=== PATIENT | female | born 1945 | race African-American/Black ===

== ENCOUNTER 2021-05-21 03:37 | Emergency (ER) | payer MEDICARE, MEDICAID ==
[2021-05-21] MEDS ORDERED: Lorazepam 2 MG/ML VIAL ONE (03:59)
== END 2021-05-21 09:44 | disposition home or self-care (01) ==
LOC: CSHERS 03:37
DX: M79.651 Pain in right thigh (principal); M79.652 Pain in left thigh; W06.XXXA Fall from bed, initial encounter
CPT/HCPCS: 70450; 72125; 72192; 96374; J2060

== ENCOUNTER 2021-11-22 06:09 | Emergency (ER) | payer MEDICARE, OTHER ==
[2021-11-22] MEDS ORDERED: Acetaminophen 325 MG TAB ONE (08:23)
== END 2021-11-22 12:22 | disposition home or self-care (01) ==
LOC: CSHERS 06:09
DX: S00.03XA Contusion of scalp, initial encounter (principal); I12.9 Hypertensive chronic kidney disease with stage 1 through stage 4 chronic kidney disease, or unspecified chronic kidney disease; E11.22 Type 2 diabetes mellitus with diabetic chronic kidney disease; N18.1 Chronic kidney disease, stage 1; C90.00 Multiple myeloma not having achieved remission; W06.XXXA Fall from bed, initial encounter; Z79.84 Long term (current) use of oral hypoglycemic drugs; Z79.899 Other long term (current) drug therapy
CPT/HCPCS: 70450; 72125

== ENCOUNTER 2022-06-27 09:58 | Inpatient (IN) | payer MEDICARE, MEDICAID ==
[2022-06-27] MEDS ORDERED: Cefepime 2 GM VIAL ONE (11:21)
[2022-06-27] MEDS ORDERED: Ondansetron PF 4 MG/2 ML Vial ONE (11:21)
[2022-06-27 11:27] LABS: Hemoglobin 9.3 g/dL (12.0-15.5); MDiff Complete? YES; Mean Corpuscular HGB CONC 33.9 g/dL (32.0-36.0); Mean Corpuscular Volume 106.2 fl (81.6-98.3); Mean Platelet Volume 12.9 fl (7.4-10.4); Platelet Count 125 10x3/uL (150-450); RBC Distribution Width 14.3 % (11.5-14.5); Red Blood Cell (RBC) Count 2.58 10x6/uL (3.90-5.03); White Blood Cell (WBC) Count 4.8 10x3/uL (3.5-10.5)
[2022-06-27 11:32] LABS: INR-International Normal Ratio 1.1; PTT 30.1 sec (22.0-33.0); Prothrombin Time 11.4 sec (9.5-12.1)
[2022-06-27 11:36] LABS: Chloride 104 mmol/L (98-107); Potassium 3.6 mmol/L (3.5-5.1); Sodium 142 mmol/L (136-145)
[2022-06-27 11:37] LABS: ALT (SGPT) 13 U/L (8-55); AST (SGOT) 16 U/L (5-34); Albumin 3.2 g/dL (3.4-4.8); Alkaline Phosphatase 72 U/L (40-110); Anion Gap 15 mmol/L (10-20); BUN (Urea Nitrogen) 21 mg/dL (9.8-20.1); Bilirubin, Total 1.2 mg/dL (0.2-1.2); Calc. Creatinine Clearance 0 mL/min (70-130); Carbon Dioxide 27 mmol/L (23-31); Estimated GFR 70; Globulin 2.4 g/dL (2.4-3.5); Glucose 187 mg/dL (83-110); Lipase 26 U/L (8-78); Protein, Total 5.6 g/dL (5.8-8.1)
[2022-06-27 11:43] LABS: Actual Bicarbonate (HCO3v) 29 mEq/L (22-28); Chloride (VBG) 102 mmol/L (98-106); Hemoglobin (Hb) 10.5 g/dL (11.7-16.1); Potassium (VBG) 4.66 mmol/L (3.70-5.30); Puncture Site Other Site; RapidComm Collect By ER NURSE; Sodium 140.3 mmol/L (133-146); pH (venous) 7.45 (7.32-7.43)
[2022-06-27 11:55] LABS: Band 10 % (5-11); Lymphocytes 10 % (21-51); Monocytes 5 % (0-10); Neutrophil 74 % (42-75); Reactive Lymphocytes 1 % (0-10)
[2022-06-27 11:58] LABS: Hypochromia SLIGHT = 6-15 cells (100X) (0-5/hpf); Macrocytosis SLIGHT = 6-15 cells (100X) (0-5/hpf); Poikilocytosis SLIGHT = 6-15 cells (100X) (0-5/hpf)
[2022-06-27 11:59] LABS: Ovalocytes SLIGHT = 2-5 cells (100X) (0-1/hpf); Platelet Morphology Comment Appears Decreased; Toxic Granulation SLIGHT
[2022-06-27] MEDS ORDERED: Vancomycin 1 GM VIAL ONE (12:19)
[2022-06-27 12:24] LABS: SARS-CoV-2 NAA Rapid Test Not Detected (NotDetected)
[2022-06-27 13:17] LABS: Bilirubin Neg (Negative); Blood, Urine 150 (Negative); Clarity Slightly Cloudy (Clear); Glucose, Urine (Dipstick) Normal (Negative); Ketone, Urine Negative (Negative); Leukocyte Negative (Negative); Nitrite Negative (Negative); Protein, Urine (Dipstick) 30 mg/dl (Neg-Trace); Specific Gravity, Urine 1.025 (1.005-1.030)
[2022-06-27 13:28] LABS: Bacteria/HPF Rare-Few HPF (None Seen); Squamous Epithelial 0-3 HPF (0-3); WBC/HPF 0-3 HPF (0-3)
[2022-06-27] MEDS ORDERED: Acetaminophen 650 MG Suppository ONE (14:39)
[2022-06-27] MEDS ORDERED: Acetaminophen 325 MG TAB PO PRN (14:58)
[2022-06-27] MEDS ORDERED: Dextrose 5% in Water 1,000 ML IV PRN (15:02)
[2022-06-27] MEDS ORDERED: Dextrose 50% Abboject 50 ML SYRINGE SLOW IVP PRN (15:02)
[2022-06-27] MEDS ORDERED: HumaLOG 300 UNITS/3 ML VIAL SC PRN (15:02)
[2022-06-27] MEDS ORDERED: hydrALAZINE 20 MG/ML VIAL SLOW IVP PRN (17:20)
[2022-06-27] MEDS ORDERED: Dextrose 5 % And 0.9 % NaCl 1,000 ML ONE (19:38)
[2022-06-27] MEDS: Dextrose 5 % And 0.9 % NaCl 1,000 ML IV SCH ×2 (19:46→21:35)
[2022-06-27] MEDS: Azithromycin 500 MG in Sodium Chloride 0.9% 250 ML 250 ML IVPB SCH (19:46)
[2022-06-27] MEDS: Cefepime 1 GM in Sodium Chloride 0.9% 100 ML IVPB SCH (21:34)
[2022-06-28 04:56] LABS: #Monocytes 0.4 10x3/uL (0.0-1.1); #Neutrophils 3.4 10x3/uL (1.5-8.4); %Basophils 0.2 % (0.0-2.0); %Eosinophils 0.4 % (0.0-6.0); %Lymphocytes 19.3 % (18.0-47.0); %Monocytes 8.3 % (0.0-10.0); %Neutrophils 71.2 % (40.0-75.0); ALT (SGPT) 8 U/L (8-55); AST (SGOT) 14 U/L (5-34); Albumin 3.1 g/dL (3.4-4.8); Alkaline Phosphatase 68 U/L (40-110); Anion Gap 14 mmol/L (10-20); BUN (Urea Nitrogen) 18 mg/dL (9.8-20.1); Bilirubin, Total 0.9 mg/dL (0.2-1.2); Calc. Creatinine Clearance 86 mL/min (70-130); Calcium 8.5 mg/dL (7.8-10.44); Carbon Dioxide 27 mmol/L (23-31); Chloride 111 mmol/L (98-107); Estimated GFR 77; Globulin 2.8 g/dL (2.4-3.5); Glucose 123 mg/dL (83-110); Hemoglobin 8.9 g/dL (12.0-15.5); Mean Corpuscular Hemoglobin 35.3 pg (27.0-33.0); Mean Corpuscular Volume 110.3 fl (81.6-98.3); Mean Platelet Volume 11.9 fl (7.4-10.4); Platelet Count 124 10x3/uL (150-450); Potassium 4.7 mmol/L (3.5-5.1); Protein, Total 5.9 g/dL (5.8-8.1); RBC Distribution Width 14.6 % (11.5-14.5); Red Blood Cell (RBC) Count 2.52 10x6/uL (3.90-5.03); Sodium 147 mmol/L (136-145); White Blood Cell (WBC) Count 4.7 10x3/uL (3.5-10.5)
[2022-06-28] MEDS ORDERED: Albuterol Sulfate 2.5 mg/3 ml Neb NEB PRN (05:06)
[2022-06-28] MEDS ORDERED: FLU VACC QS2022-23(65YR UP)/PF 240 MCG/0.7 ML SYRINGE IM ONE (09:00)
[2022-06-28] MEDS: Cefepime 1 GM in Sodium Chloride 0.9% 100 ML IVPB SCH (09:34)
[2022-06-28] MEDS: Enoxaparin Sodium 40 MG/0.4 ML SYRINGE SC SCH (09:45)
[2022-06-28] MEDS ORDERED: Furosemide 20 MG/2 ML VIAL SLOW IVP SCH (10:15)
[2022-06-28] MEDS ORDERED: methylPREDNISolone Sod Succ/PF 125 MG/2 ML VIAL IVP SCH (10:15)
[2022-06-28] MEDS ORDERED: Piperacillin/Tazobactam 3.375 GM in Sodium Chloride 0.9% 100 ML IVPB SCH (10:45)
[2022-06-28] MEDS: Piperacillin/Tazobactam 3.375 GM in Sodium Chloride 0.9% 100 ML IVPB SCH ×2 (15:42→23:25)
[2022-06-28] MEDS: Azithromycin 500 MG in Sodium Chloride 0.9% 250 ML 250 ML IVPB SCH (18:45)
[2022-06-29] MEDS: Piperacillin/Tazobactam 3.375 GM in Sodium Chloride 0.9% 100 ML IVPB SCH ×2 (08:08→15:11)
[2022-06-29] MEDS: Enoxaparin Sodium 40 MG/0.4 ML SYRINGE SC SCH (08:09)
[2022-06-29] MEDS: Furosemide 20 MG TAB PO SCH ×2 (12:13→15:12)
[2022-06-29] MEDS: Azithromycin 500 MG in Sodium Chloride 0.9% 250 ML 250 ML IVPB SCH (18:17)
[2022-06-30] MEDS: Piperacillin/Tazobactam 3.375 GM in Sodium Chloride 0.9% 100 ML IVPB SCH ×2 (00:14→06:23)
[2022-06-30 05:13] LABS: #Monocytes 0.4 10x3/uL (0.0-1.1); #Neutrophils 2.3 10x3/uL (1.5-8.4); %Basophils 0.3 % (0.0-2.0); %Eosinophils 0.3 % (0.0-6.0); %Monocytes 9.1 % (0.0-10.0); %Neutrophils 59.5 % (40.0-75.0); Hemoglobin 8.9 g/dL (12.0-15.5); Mean Corpuscular HGB CONC 32.8 g/dL (32.0-36.0); Mean Corpuscular Hemoglobin 35.5 pg (27.0-33.0); Mean Platelet Volume 11.6 fl (7.4-10.4); Platelet Count 161 10x3/uL (150-450); RBC Distribution Width 14.3 % (11.5-14.5); Red Blood Cell (RBC) Count 2.51 10x6/uL (3.90-5.03); White Blood Cell (WBC) Count 3.9 10x3/uL (3.5-10.5)
[2022-06-30 05:28] LABS: Anion Gap 13 mmol/L (10-20); BUN (Urea Nitrogen) 19 mg/dL (9.8-20.1); CRP (Inflammatory) 9.36 mg/dL (= or < 0.5); Calc. Creatinine Clearance 90 mL/min (70-130); Calcium 8.4 mg/dL (7.8-10.44); Carbon Dioxide 30 mmol/L (23-31); Chloride 108 mmol/L (98-107); Estimated GFR 81; Glucose 145 mg/dL (83-110); Potassium 3.8 mmol/L (3.5-5.1); Sodium 147 mmol/L (136-145)
[2022-06-30 05:32] LABS: Macrocytosis SLIGHT = 6-15 cells (100X) (0-5/hpf); Platelet Morphology Comment Appears Adequate
[2022-06-30] MEDS: Enoxaparin Sodium 40 MG/0.4 ML SYRINGE SC SCH (08:20)
[2022-06-30] MEDS: Furosemide 20 MG TAB PO SCH ×2 (08:20→15:35)
[2022-06-30] MEDS ORDERED: Amlodipine 10 MG TAB PO SCH (10:15)
[2022-06-30] MEDS ORDERED: Metoprolol Tartrate 25 MG TAB PO SCH (10:15)
[2022-06-30] MEDS ORDERED: Donepezil HCl 5 MG TAB PO SCH (10:30)
[2022-06-30] MEDS: traZODone HCl 50 MG TAB PO SCH ×2 (15:35→21:22)
[2022-06-30] MEDS: Sertraline 25 MG TAB PO SCH ×2 (15:35→21:22)
[2022-06-30] MEDS ORDERED: Atorvastatin Calcium 10 MG TAB PO SCH (21:00)
[2022-06-30] MEDS: Amoxicillin/Potassium Clav 875 MG TAB PO SCH (21:22)
[2022-07-01 05:06] LABS: #Monocytes 0.4 10x3/uL (0.0-1.1); #Neutrophils 3.3 10x3/uL (1.5-8.4); %Basophils 0.2 % (0.0-2.0); %Eosinophils 0.4 % (0.0-6.0); %Lymphocytes 23.9 % (18.0-47.0); %Monocytes 7.8 % (0.0-10.0); %Neutrophils 66.9 % (40.0-75.0); Hemoglobin 9.7 g/dL (12.0-15.5); Mean Corpuscular Hemoglobin 36.2 pg (27.0-33.0); Mean Corpuscular Volume 106.3 fl (81.6-98.3); Mean Platelet Volume 11.8 fl (7.4-10.4); Platelet Count 189 10x3/uL (150-450); RBC Distribution Width 13.7 % (11.5-14.5); Red Blood Cell (RBC) Count 2.68 10x6/uL (3.90-5.03)
[2022-07-01 05:32] LABS: Anion Gap 13 mmol/L (10-20); BUN (Urea Nitrogen) 10 mg/dL (9.8-20.1); CRP (Inflammatory) 6.06 mg/dL (= or < 0.5); Calc. Creatinine Clearance 102 mL/min (70-130); Calcium 9.2 mg/dL (7.8-10.44); Carbon Dioxide 31 mmol/L (23-31); Chloride 102 mmol/L (98-107); Estimated GFR 90; Glucose 138 mg/dL (83-110); Potassium 3.6 mmol/L (3.5-5.1); Sodium 142 mmol/L (136-145)
[2022-07-01] MEDS ORDERED: metFORMIN 500 MG TAB PO SCH (08:00)
[2022-07-01] MEDS: Furosemide 20 MG TAB PO SCH ×2 (08:18→14:28)
[2022-07-01] MEDS: Sertraline 25 MG TAB PO SCH ×2 (08:18→14:28)
[2022-07-01] MEDS: Amoxicillin/Potassium Clav 875 MG TAB PO SCH (08:19)
[2022-07-01] MEDS: traZODone HCl 50 MG TAB PO SCH ×2 (08:19→14:28)
[2022-07-01] MEDS: Enoxaparin Sodium 40 MG/0.4 ML SYRINGE SC SCH (08:20)
[2022-07-01 08:56] VITALS: TEMP 98.6
[2022-07-01] MEDS ORDERED: Amlodipine 5 MG TAB PO SCH (09:00)
[2022-07-01] MEDS ORDERED: Metoprolol Tartrate 25 MG TAB PO SCH (09:00)
[2022-07-01] MEDS ORDERED: Donepezil HCl 5 MG TAB PO SCH (09:00)
[2022-07-01] MEDS ORDERED: Citalopram 20 MG TAB PO SCH (09:00)
[2022-07-01 11:56] VITALS: BP 145/67
== END 2022-07-01 17:18 | DRG 177 ==
LOC: SUATTDRO 09:58 → CSHERS 09:58 → CSHTELE 17:04
PROVIDERS: ADMIT Internal Medicine; ATTEND Hospitalist
DX: J69.0 Pneumonitis due to inhalation of food and vomit (principal); G93.41 Metabolic encephalopathy; J96.01 Acute respiratory failure with hypoxia; C90.00 Multiple myeloma not having achieved remission; E87.0 Hyperosmolality and hypernatremia; F03.90 Unspecified dementia, unspecified severity, without behavioral disturbance, psychotic disturbance, mood disturbance, and anxiety; E11.9 Type 2 diabetes mellitus without complications; D64.9 Anemia, unspecified; E78.5 Hyperlipidemia, unspecified; I25.10 Atherosclerotic heart disease of native coronary artery without angina pectoris; Z20.822 Contact with and (suspected) exposure to COVID-19; I50.9 Heart failure, unspecified; I11.0 Hypertensive heart disease with heart failure; Z91.018 Allergy to other foods; Z91.041 Radiographic dye allergy status; Z79.82 Long term (current) use of aspirin; Z79.899 Other long term (current) drug therapy; Z90.710 Acquired absence of both cervix and uterus; Z98.51 Tubal ligation status; Z85.42 Personal history of malignant neoplasm of other parts of uterus; D69.6 Thrombocytopenia, unspecified
CPT/HCPCS: 36416; 70450; 71045; 80048; 80053; 81003; 81015; 82805; 83605; 83690; 83880; 84145; 84484; 85025; 85610; 85730; 86140; 87040; 87086; 93005; 94640; 94760; 96365; 96366; 96367; 96375; J0456; J0692; J1650; J1940; J2405; J2543; J2930; J3370; J3490; J7042; J7050; J7611; J7620